=== PATIENT | female | born 1980 | race African-American/Black ===

== ENCOUNTER 2020-12-04 23:50 | Emergency (ER) | payer MEDICAID ==
[~2020-12-04] VITALS: Ht 160 cm; Wt 64.0 kg
[2020-12-05] MEDS ORDERED: MAGNESIUM/ALUMINUM HYDROXIDE/SIMETHICONE 30ML UDC PO STA (00:14)
[2020-12-05] MEDS ORDERED: VISCOUS LIDOCAINE 2% 15 ML UDC PO STA (00:14)
[2020-12-05 01:33] LABS: BASOPHILS % 0.8 % (0.0-2.0); EOSINOPHILS % 4.3 % (0.0-5.0); HEMATOCRIT. 32.8 % (36.0-48.0); HEMOGLOBIN. 10.8 g/dL (12.0-16.0); LYMPHOCYTES % 19.1 % (20.0-50.0); MEAN CORPUSCULAR VOLUME 81.7 fL (81.0-99.0); MEAN PLATELET VOLUME 6.9 fl (7.4-10.4); MONOCYTES % 11.1 % (2.0-8.0); NEUTROPHILS % 64.7 % (40.0-76.0); PLATELET 323 x1000/uL (130-400); RED BLOOD CELL COUNT 4.02 mill/uL (4.2-5.4); RED CELL DISTRIBUTION WIDTH 15.1 % (11.6-14.6)
[2020-12-05 01:35] LABS: CHLORIDE 107 mEq/L (98-107)
[2020-12-05 01:41] LABS: ETHANOL BLOOD < 10 mg/dL
[2020-12-05 03:56] LABS: CLARITY URINE CLEAR (CLEAR); COLOR URINE YELLOW (YELLOW); KETONES URINE NEGATIVE (NEGATIVE); LEUKOCYTE ESTERASE URINE NEGATIVE (NEGATIVE); NITRITE URINE NEGATIVE (NEGATIVE); OCCULT BLOOD URINE 1+ (NEGATIVE); PH URINE 6.5 (4.5-8.0); PROTEIN URINE NEGATIVE (NEGATIVE); SPECIFIC GRAVITY URINE 1.015 (1.005-1.030); UROBILINOGEN URINE 0.2 E.U./dL (0.2-1.0)
[2020-12-05 04:09] LABS: *AMPHETAMINES SCREEN URINE NEGATIVE (NEGATIVE); *BARBITURATES SCREEN URINE NEGATIVE (NEGATIVE)
[2020-12-05 04:10] LABS: *BENZODIAZEPINES SCREEN URINE NEGATIVE (NEGATIVE); *COCAINE SCREEN URINE NEGATIVE (NEGATIVE); OPIATES URINE SCREEN NEGATIVE (NEGATIVE)
[2020-12-05 04:11] LABS: CANNABINOID URINE SCREEN NEGATIVE (NEGATIVE); METHADONE URINE SCREEN NEGATIVE (NEGATIVE); PHENCYCLIDINE URINE SCREEN NEGATIVE (NEGATIVE)
[2020-12-05 04:22] VITALS: BP 128/76
== END 2020-12-05 04:22 | disposition home or self-care (01) ==
LOC: ER 23:50
DX: R10.2 Pelvic and perineal pain (principal); R30.0 Dysuria; Z98.890 Other specified postprocedural states; Z88.8 Allergy status to other drugs, medicaments and biological substances; Z98.51 Tubal ligation status
CPT/HCPCS: 36415; 80053; 80305; 80320; 81003; 81025; 85025; 93005; 99284; G0480

== ENCOUNTER 2024-08-08 14:59 | Emergency (ER) | payer MEDICAID, OTHER ==
[~2024-08-08] VITALS: Ht 160 cm; Wt 62.0 kg
[2024-08-08 15:04] VITALS: O2SAT 100
[2024-08-08 15:51] LABS: BASOPHILS % 2.7 % (0.0-2.0); DIFFERENTIAL COMMENT 1; EOSINOPHILS % 4.9 % (0.0-5.0); MEAN CORPUSCULAR HGB CONC 29.8 g/dL (31.0-37.0); MEAN CORPUSCULAR VOLUME 67.1 fL (81.0-99.0); MEAN PLATELET VOLUME 6.7 fl (7.4-10.4); MONOCYTES % 6.4 % (2.0-8.0); PLATELET 704 x1000/uL (130-400); RED BLOOD CELL COUNT 3.24 mill/uL (4.2-5.4); RED CELL DISTRIBUTION WIDTH 18.4 % (11.6-14.6)
[2024-08-08 15:52] LABS: ADD RBC MORPHOLOGY YES
[2024-08-08 15:58] LABS: CHLORIDE 108 mEq/L (98-107); POTASSIUM 3.3 mEq/L (3.5-5.1); SODIUM 140 mEq/L (136-145)
[2024-08-08 15:59] LABS: CALCIUM 9.1 mg/dL (8.7-10.4); CARBON DIOXIDE 25 mEq/L (21-32); HEMATOCRIT. 21.8 % (36.0-48.0); HEMOGLOBIN. 6.5 g/dL (12.0-16.0)
[2024-08-08 16:04] LABS: CREATININE 0.9 mg/dL (0.6-1.0); GLUCOSE 96 mg/dL (70-105); UREA NITROGEN BLOOD 10 mg/dL (9-23)
[2024-08-08 19:14] LABS: HYPOCHROMASIA 2+; MICROCYTOSIS 3+; PLATELET ESTIMATE MARKEDLY INCREASED
[2024-08-08 19:15] LABS: ANISOCYTOSIS 1+; OVALOCYTES 1+
[2024-08-08 19:37] LABS: IRON 22 ug/dL (50-170)
[2024-08-08 19:40] LABS: TOTAL IRON BINDING CAPACITY 346 ug/dl (250-425)
[2024-08-08] MEDS: POTASSIUM CHLORIDE 20MEQ TABLET SR PO NR (22:35)
[2024-08-09 07:45] VITALS: BP 138/94; PULSE 82; RESP 20; TEMP 36.78072; O2SAT 99
== END 2024-08-09 08:30 | disposition home or self-care (01) ==
LOC: ER 14:59
DX: D64.9 Anemia, unspecified (principal); E78.00 Pure hypercholesterolemia, unspecified; Z98.890 Other specified postprocedural states; Z98.51 Tubal ligation status; Z88.2 Allergy status to sulfonamides; Z88.8 Allergy status to other drugs, medicaments and biological substances
CPT/HCPCS: 80048; 83540; 83550; 85025; 85044; 86850; 86900; 86901; 86920; 36415; 93005; 99285; Z7610; P9016